=== PATIENT | male | born 1995 | race Hispanic/Latino ===

== ENCOUNTER 2021-04-09 10:43 | Emergency (ER) | payer OTHER ==
[~2021-04-09] VITALS: Ht 180.3 cm; Wt 92.3 kg
[2021-04-09 14:33] LABS: BASO % 0.5 % (0.0-1.0); EOS # 0.1 10^3/uL (0.0-0.5); EOS % 1.7 % (0.0-3.0); HEMOGLOBIN 13.8 g/dl (13.5-17.5); LYMPH # 2.8 10^3/uL (1.5-5.0); MEAN CORPUSCULAR HEMOGLOBIN 29.1 pg (27.0-33.0); MEAN CORPUSCULAR HGB CONC 33.7 g/dl (32.0-36.5); MEAN CORPUSCULAR VOLUME 86.5 fl (80.0-96.0); NEUTROPHILS # 3.9 10^3/uL (1.5-8.5); NEUTROPHILS % 49.7 % (36.0-66.0); PLATELET COUNT, AUTOMATED 363 10^3/uL (150-450); RED BLOOD COUNT 4.74 10^6/uL (4.30-6.10); WHITE BLOOD COUNT 7.9 10^3/uL (4.0-10.0)
[2021-04-09 14:51] LABS: BLOOD UREA NITROGEN 11 MG/DL (7-18); CREATININE FOR GFR 0.97 MG/DL (0.70-1.30); GLUCOSE, FASTING 96 MG/DL (70-100)
[2021-04-09 14:52] LABS: ALBUMIN 4.3 GM/DL (3.2-5.2); ALT/SGPT 35 U/L (12-78); BILIRUBIN,TOTAL 0.6 MG/DL (0.2-1.0); CALCIUM LEVEL 9.6 MG/DL (8.5-10.1); CARBON DIOXIDE LEVEL 28 MEQ/L (21-32); CHLORIDE LEVEL 106 MEQ/L (98-107); GLOMERULAR FILTRATION RATE > 60.0 (>60); POTASSIUM SERUM 4.3 MEQ/L (3.5-5.1); SODIUM LEVEL 138 MEQ/L (136-145); TOTAL PROTEIN 8.2 GM/DL (6.4-8.2)
[2021-04-09 14:55] LABS: ERYTHROCYTE SEDIMENTATION RATE 15 mm/hr (0-15)
[2021-04-09] MEDS ORDERED: ISOVUE-370 76% 100ML VIAL As Ordered ONE (15:07)
--- NOTE | 2021-04-09 15:34 | REPVR ---
PROCEDURE INFORMATION: Exam: CT Neck With Contrast Exam date and time: 04/09/2021 2:03 PM Age: 26 years old Clinical indication: Mass, lump, or swelling in neck; Bilateral; Painful swallowing; Additional info: Cold sores submandibular mass pain to swallow TECHNIQUE: Imaging protocol: Computed tomography images of the neck with contrast. Radiation optimization: All CT scans at this facility use at least one of these dose optimization techniques: automated exposure control; mA and/or kV adjustment per patient size (includes targeted exams where dose is matched to clinical indication); or iterative reconstruction. Contrast material: ISOVUE 370; Contrast volume: 75 ml; Contrast route: INTRAVENOUS (IV); COMPARISON: No relevant prior studies available. FINDINGS: Nasopharynx: Unremarkable. Oropharynx: Unremarkable. No significant tonsillar enlargement. Hypopharynx: Unremarkable. Larynx: Unremarkable. Normal epiglottis. Retropharyngeal space: Unremarkable. Submandibular/Parotid glands: Normal. Glands are normal in size. Thyroid: Normal. No enlarged or calcified nodules. Lymph nodes: Mildly enlarged submandibular and submental lymph nodes are present, more pronounced on the right. A right submandibular node measures approximately 2.0 x 1.5 x 1.0 cm. Multiple small nonspecific bilateral cervical chain lymph nodes are present. Trachea: Visualized trachea is unremarkable. Lungs: Unremarkable as visualized. Bones/joints: Unremarkable. No acute fracture. Soft tissues: Unremarkable. No significant soft tissue swelling. IMPRESSION: Mild submandibular and submental lymphadenopathy Electronically signed by: Terrence Chavez On 04/09/2021 15:34:02 PM
[2021-04-09] MEDS ORDERED: IBUP80TA PO (16:13)
[2021-04-09 16:33] VITALS: BP 135/66
== END 2021-04-09 16:37 | disposition home or self-care (01) ==
LOC: M ED 10:43
DX: R59.9 Enlarged lymph nodes, unspecified (principal); B00.1 Herpesviral vesicular dermatitis; R74.8 Abnormal levels of other serum enzymes
CPT/HCPCS: 36415; 70491; 80053; 85025; 85652; 86140; 99283; Q9967

== ENCOUNTER 2021-12-17 06:13 | Day surgery (SDC) | payer OTHER ==
[~2021-12-17] VITALS: Ht 180.3 cm; Wt 95.4 kg
[~2021-12-17 06:13] MED LIST: IBUP80TA PO
[2021-12-17] MEDS ORDERED: ceFAZolin SOD 2 GM in IV 1 EA IV ONE (06:20)
[2021-12-17] MEDS ORDERED: LR 1,000 ML IV SCH ×2 (06:30→09:25)
[2021-12-17] MEDS ORDERED: LIDOCAINE 1% SDV 30ML VIAL As Ordered ONE (07:10)
[2021-12-17] MEDS ORDERED: BACITRACIN OINTMENT 30GM TUBE As Ordered ONE (07:10)
[2021-12-17] MEDS ORDERED: MIDAZOLAM INJ 2MG/2ML VIAL (J2250 PER 1MG) As Ordered ONE (07:10)
[2021-12-17] MEDS ORDERED: LIDOCAINE 2% INJ 100 MG/5 ML SYRINGE As Ordered ONE (07:10)
[2021-12-17] MEDS ORDERED: fentaNYL 250 MCG/5 ML INJECTION As Ordered ONE (07:10)
[2021-12-17] MEDS ORDERED: propofoL 200 MG/20 ML VIAL As Ordered ONE (07:10)
[2021-12-17] MEDS ORDERED: LIDOCAINE 2% 100MG/5ML SDV (FOR ANES.) As Ordered ONE (07:11)
[2021-12-17] MEDS ORDERED: BUPIVACAINE HCL 0.25% 30ML VIAL As Ordered ONE (07:11)
[2021-12-17] MEDS ORDERED: dexameTHASONE 4 MG/ML 1ML VIAL (J1100 PER 1MG) As Ordered ONE ×2 (07:44→09:55)
[2021-12-17] MEDS ORDERED: ACETAMINOPHEN 1000MG 100ML IV BTL (OFIRMEV) (J0131 PER 10MG) As Ordered ONE (07:52)
[2021-12-17] MEDS ORDERED: ONDANSETRON 4MG 2ML VIAL As Ordered ONE (08:09)
[2021-12-17] MEDS ORDERED: fentaNYL 100 MCG/2 ML INJECTION IV PRN (09:25)
[2021-12-17] MEDS ORDERED: ONDANSETRON 4MG 2ML VIAL IV PRN (09:25)
[2021-12-17] MEDS ORDERED: HYDROMORPHONE HCL 0.5 MG/ 0.5 ML SYRINGE (J1170 PER 1) IV PRN (09:25)
[2021-12-17] MEDS ORDERED: PERCOCET 5MG/325MG TAB PO PRN (09:30)
[2021-12-17] MEDS: oxyCODONE 5MG TAB PO PRN ×2 (09:43→11:42)
[2021-12-17] MEDS ORDERED: PERCOCET PO ×2 (09:48→11:45)
[2021-12-17 11:35] VITALS: BP 133/73
== END 2021-12-17 12:42 | disposition home or self-care (01) ==
LOC: M SDC 06:13
PROVIDERS: ATTEND Urology
DX: N48.1 Balanitis (principal); Z30.2 Encounter for sterilization
CPT/HCPCS: 54161; 55250; 88302; 88304; J0131; J0690; J1100; J2250; J2405; J3010

== ENCOUNTER → 2022-02-20 | Outpatient (REF) | payer OTHER ==
[~2022-02-20] MED LIST changes: +PERCOCET PO
[2022-02-20 14:15] LABS: SEMEN APPEARANCE OPAQUE (OPAQUE); SEMEN VISCOSITY LIQUID (LIQUID); SEMEN VOLUME 1.8 ml (2.0-5.0)
[2022-02-20 14:16] LABS: WBC CONCENTRATION <=1 M/ml (<=1 M/ml)
== END ==
LOC: M SMT 13:22
PROVIDERS: ATTEND Nurse Practitioner Women's Health
DX: Z30.09 Encounter for other general counseling and advice on contraception (principal)

== ENCOUNTER → 2023-01-22 | Outpatient (CLI) | payer OTHER | LOC: M PLAIMG 12:51 | PROVIDERS: ATTEND Nurse Practitioner Family | DX: R00.2 Palpitations (principal); R06.02 Shortness of breath; M25.569 Pain in unspecified knee ==